=== PATIENT | female | born 1975 | race Hispanic/Latino ===

== ENCOUNTER 2022-08-21 10:17 | Emergency (ER) | payer SELFPAY ==
[~2022-08-21] VITALS: Ht 162.6 cm; Wt 122.5 kg
[2022-08-21 10:17] VITALS: BP 176/104
--- NOTE | 2022-08-21 10:17 | NUR ---
ARRIVAL PT ARRIVED AMBULATORY TO ED 5 WITH C/O LEFT ARM TINGLING AND NUMBNESS STARTING AROUND 15 MINUTES AGO. VITALS TAKEN AND DR NOTIFIED.
[2022-08-21 10:28] VITALS: BP 176/104
[2022-08-21] MEDS ORDERED: ATIVAN IV STA (10:28)
--- NOTE | 2022-08-21 10:32 | PCM.EKG ---
[facility] Test Date: 2022-08-21 Pat Name: XIOMARA HENDRICKS Department: ER Room: Gender: F School Psychology Specialist: KIM : [id number] Requested By: GEN KONG Order Number: [id number] Reading MD: Gen KONG Measurements Intervals [place] Rate: 74 P: -38 IN: 161 QRS: 38 QRSD: 85 T: 41 QT: 389 QTc: 432 Interpretive Statements Sinus rhythm No previous ECG available for comparison Electronically Signed On 08-23-2022 07:13:42 CDT by Gen KONG Please click the below link to view image of tracing.
[2022-08-21] MEDS ORDERED: ATIVAN ONE (10:33)
--- NOTE | 2022-08-21 10:39 | ER.PDOC ---
General Chief Complaint: Extremities Stated Complaint: ARM NUMBNESS TRAVEL OUT OF US: No Time seen by MD: 10:35 Source: patient Exam Limitations: no limitations History of Present Illness Initial Comments Left arm numbness, both hands tingling, weird feeling in her body, head feels funny but denies headache, and upper neck discomfort that stated about 1 hour ago while driving through this area. She is very stressed because she is relocating to [place]. She denies chest pain or shortness of breath. No facial droop. No speech difficulty. No extremity weakness. Timing/Duration: 1 hour Severity: moderate Associated Symptoms: denies symptoms Allergies: Coded Allergies: No Known Allergies (Unverified , 08/21/22) Past Medical History Medical History: no pertinent history Surgical History: hysterectomy Family History Significant Family History: no pertinent family hx Social History Smoking: non-smoker Alcohol Use: occassionally Drug Use: none Review of Systems Constitutional: no symptoms reported EENTM: no symptoms reported Respiratory: no symptoms reported Cardiovascular: no symptoms reported Gastrointestinal: no symptoms reported Hematologic/Lymphatic: see HPI All Other Systems: Reviewed and Negative Physical Exam General Appearance: No Apparent Distress, WD/WN, Anxious Neck: Non-Tender, Full Range of Motion, Supple, Normal Inspection Respiratory: chest non-tender, lungs clear, normal breath sounds, no respiratory distress CVS: reg rate & rhythm, no murmur, no gallop, pulses nml, nml capillary refill Gastrointestinal: Normal Bowel Sounds, No Organomegaly, No Pulsatile Mass, Non Tender Back: Normal Inspection, No CVA Tenderness Extremities: Normal Range of Motion, Non-Tender, Normal Inspection, No Pedal Edema 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 as Tested, No Motor/Sensory Deficits, Alert, Normal Mood/Affect, Oriented x 3 Skin: Normal Color Lymphatic: No Adenopathy Results/Orders Results/Orders Orders - GEN KONG MD Ct Head Wo Contrast (08/21/22 10:28) Ct Cervical Spine (08/21/22 10:28) EKG (08/21/22 10:28) Xr Chest 1v (08/21/22 10:28) Cbc With Auto Diff (08/21/22 10:28) Comprehensive Metabolic Panel (08/21/22 10:28) Troponin I High Sensitivity (08/21/22 10:28) Lorazepam (Ativan) (08/21/22 10:28) Vital Signs Date Time Temp Pulse Resp B/P (MAP) Pulse Ox O2 Delivery O2 Flow Rate FiO2 08/21/22 11:07 98.4 69 18 133/72 (92) 99 Room Air* 0 21 08/21/22 10:28 98.4 74 18 176/104 (128) 99 Room Air* 0 21 08/21/22 10:17 98.4 74 18 08/21/22 10:17 98.4 74 18 176/104 (128) 99 Room Air* 0 21 08/21/22 10:17 98.4 74 18 99 Administered Medications Medications (Trade) Dose Ordered Sig/River Route PRN Reason Start Time Stop Time Status Last Admin Dose Admin Lorazepam (Ativan) 1 mg STAT STAT IV 08/21/22 10:28 08/21/22 10:32 DC 08/21/22 10:36 1 MG Laboratory Tests Test 08/21/22 10:23 White Blood Count 11.7 10^3/uL (4.5-11.0) H Red Blood Count 4.81 10^6/uL (4.00-5.20) Hemoglobin 14.1 g/dL (12.0-15.0) Hematocrit 43.0 % (36.0-46.0) Mean Corpuscular Volume 89.4 fL (78-100) Mean Corpuscular Hemoglobin 29.3 pg (26-34) Mean Corpuscular Hemoglobin Concent 32.8 g/dL (33-36.5) L Red Cell Distribution Width 13.3 % (11.5-14.5) Platelet Count 249 10^3/uL (150-400) Mean Platelet Volume 9.6 fL (7.8-11.0) Neutrophils (%) (Auto) 66.3 % (41.0-85.0) Lymphocytes (%) (Auto) 26.1 % (24.0-44.0) Monocytes (%) (Auto) 6.3 % (5.0-12.0) Neutrophils # (Auto) 7.8 10^3/uL (1.8-7.7) H Lymphocytes # (Auto) 3.06 10^3/uL1 (1.0-4.8) Monocytes # (Auto) 0.7 10^3/uL (0.3-0.8) Absolute Immature Granulocyte (auto 0.02 10^3 u/L (0-2) Absolute Eosinophils (auto) 0.1 10^3/uL (0.0-0.2) Immature Granulocytes % 0.20 % (0.00-0.50) Eosinophils % 0.8 % (0.0-5.0) Basophils % 0.3 % (0.0-0.2) H Basophils # 0.0 10^3/uL (0.0-0.1) Sodium Level 137 mmol/L (132-145) Potassium Level 3.8 mmol/L (3.6-5.2) Chloride Level 104.0 mmol/L (96-109) Carbon Dioxide Level 24.1 mmol/L (20.0-32) Anion Gap 12.7 Blood Urea Nitrogen 14 mg/dL (7-18) Creatinine 0.96 mg/dL (0.59-1.40) Estimated GFR () 76.4 (>/=60) Est GFR (CKD-EPI)(Non-Afr [place]ian) 63.1 (>/=60) BUN/Creatinine Ratio 14.0 (10.0-20.0) Glucose Level 117 mg/dL (70-110) H Calcium Level 9.1 mg/dL (8.4-10.5) Total Bilirubin 0.3 mg/dL (0.2-1.0) Aspartate Amino Transferase (AST) 14 U/L (0-35) Alanine Aminotransferase (ALT) 22 U/L (12-78) Alkaline Phosphatase 100 U/L (50-136) Troponin I High Sensitivity 20 ng/L (0-50) Total Protein 9.0 g/dL (6.4-8.2) H Albumin 4.1 g/dL (3.4-5.0) Globulin 4.9 Albumin/Globulin Ratio 0.[address] head: Normal CT C-spine: No acute C-spine abnormalities WBC 11.7, rest of CBC is normal. Glucose 117, rest of chemistry is normal. Troponin is normal. Chest x-ray is normal. Patient received Ativan and symptoms completely resolved. Her blood pressure improved. She is feeling better to go home. Reviewed results with the patient and she voices understanding. EKG/XRAY/CT/US EKG: NSR EKG Comments: HR 74, normal P axis ER DEPART Departure Time of Disposition: 11:30 Disposition: 01 HOME / SELF CARE / HOMELESS Impression: Primary Impression: Anxiety Additional Impression: Panic attack Condition: Improved Referrals: PCP,UNKNOWN (PCP) PRIMARY CARE PROVIDER Additional Instructions: Follow-up with your PCP 1 to 2 days Return to ED if worsening symptoms or concerns Duration or Time Spent with Pa: 45 min Problem Qualifiers GEN KONG MD Aug 21, 2022 10:39
[2022-08-21 10:46] LABS: BASOPHIL % 0.3 % (0.0-0.2); EOSINOPHIL # 0.1 10^3/uL (0.0-0.2); EOSINOPHIL % 0.8 % (0.0-5.0); LYMPHOCYTES # 3.06 10^3/uL1 (1.0-4.8); LYMPHOCYTES % 26.1 % (24.0-44.0); MEAN CORP HGB 29.3 pg (26-34); MONOCYTES # 0.7 10^3/uL (0.3-0.8); MONOCYTES % 6.3 % (5.0-12.0); NEUTROPHIL # 7.8 10^3/uL (1.8-7.7); NEUTROPHILS % 66.3 % (41.0-85.0); PLATELET COUNT 249 10^3/uL (150-400); RED CELL DISTRIBUTION WIDTH 13.3 % (11.5-14.5)
[2022-08-21 11:05] LABS: CARBON DIOXIDE 24.1 mmol/L (20.0-32)
[2022-08-21 11:07] VITALS: BP 133/72
--- NOTE | 2022-08-21 11:20 | DIREP ---
PROCEDURE:CHEST 1 VIEW COMPARISON:None. INDICATIONS:left arm numbness FINDINGS: LUNGS/PLEURA:No significant pulmonary parenchymal abnormalities. No effusions. No pneumothorax. VASCULATURE:Normal. Unremarkable pulmonary vasculature. CARDIAC:Normal. No cardiac silhouette abnormality or cardiomegaly. MEDIASTINUM:Normal. No visible mass or adenopathy. BONES:Normal. No fracture or visible bony lesion. OTHER:Negative. CONCLUSION:Normal examination. Dictated by: Cedric Polanco M.D. on 08/21/2022 at 11:18 AM
--- NOTE | 2022-08-21 11:21 | DIREP ---
PROCEDURE:CT HEAD OR BRAIN W/O CONTRAST COMPARISON:None. INDICATIONS:left arm numbness and both hands tingling TECHNIQUE:CT images were created without intravenous contrast. FINDINGS: VENTRICLES:The ventricles are normal in size and configuration. CEREBRUM:Normal cerebral morphology with appropriate mota white matter differentiation. CEREBELLUM:Negative. BRAINSTEM:Negative. BASAL CISTERNS:Negative. HEMORRHAGE (Vol L*W*H*.52):No MASS LESION:No ACUTE INFARCT:No SKULL:Normal. SINUSES:Normal. OTHER:None CONCLUSION:Normal examination. Dictated by: Cedric Polanco M.D. on 08/21/2022 at 11:19 AM
--- NOTE | 2022-08-21 11:24 | DIREP ---
PROCEDURE:CT SPINE CERVICAL W/O COMPARISON:None. INDICATIONS:both hands tingling TECHNIQUE:Multi-planar CT images of the cervical spine were obtained without IV contrast. FINDINGS: CRANIOCERVICAL AREA:Normal foramen magnum with no Chiari malformation. BONES:No fracture, pars defect, or osseous lesion. ALIGNMENT:Normal. PARASPINAL AREA:Normal with no visible mass. CERVICAL DISC LEVELS: C2-C3:No significant disc/facet abnormality, spinal stenosis, or foraminal stenosis. C3-C4:No significant disc/facet abnormality, spinal stenosis, or foraminal stenosis. C4-C5:No significant disc/facet abnormality, spinal stenosis, or foraminal stenosis. C5-C6:No significant disc/facet abnormality, spinal stenosis, or foraminal stenosis. C6-C7:No significant disc/facet abnormality, spinal stenosis, or foraminal stenosis. C7-T1:No significant disc/facet abnormality, spinal stenosis, or foraminal stenosis. CONCLUSION:No acute cervical spine abnormalities. Dictated by: Cedric Polanco M.D. on 08/21/2022 at 11:21 AM
[2022-08-21 11:32] VITALS: BP 121/71
== END 2022-08-21 11:32 | disposition home or self-care (01) ==
LOC: ER 10:17
DX: F41.0 Panic disorder [episodic paroxysmal anxiety] (principal); Z90.710 Acquired absence of both cervix and uterus
CPT/HCPCS: 99285; 70450; 96374; 71045; 72125; 80053; 85025; 36415; 84484; 93005; J2060